=== PATIENT | male | born 1955 | race Caucasian/White ===

== ENCOUNTER 2023-10-03 09:03 | Observation (INO) ==
--- NOTE | 2023-08-25 10:54 | PAT Medication Instructions ---
Medication Instructions Date of Service August 25, 2023 Home Medications amoxicillin 500 mg-potassium clavulanate 125 mg tablet 1 tab PO BID ascorbic acid (vitamin C) 500 mg tablet (Vitamin C) 500 mg PO QAM cholecalciferol (vitamin D3) 100 mcg (4,000 unit) capsule 4,000 unit PO QAM clopidogrel 75 mg tablet 75 mg PO Q OTHER DAY coenzyme Q10 30 mg capsule 60 mg PO QAM dupilumab 300 mg/2 mL subcutaneous pen injector (Dupixent) 300 mg subcut UD fexofenadine 60 mg-pseudoephedrine ER 120 mg tablet,ext.release,12 hr ([place]-D 12 Hour) 1 tab PO Q OTHER DAY fluticasone 250 mcg-salmeterol 50 mcg/dose blistr powdr for inhalation 1 ea inhalation BID fluticasone propionate 50 mcg/actuation nasal spray,suspension 50 mcg intranasal BID PRN magnesium 200 mg tablet 400 mg PO QAM metoprolol succinate 25 mg tablet,extended release 24 hr 12.5 mg PO HS omega 9-ooq-eul-fish oil 1,200 mg (144 mg-216 mg) capsule (Fish Oil) 1 cap PO QAM rosuvastatin 10 mg tablet 10 mg PO HS tamsulosin 0.4 mg capsule 0.8 mg PO QPM triamcinolone acetonide 0.1 % topical cream 1 applic topical BID PRN ASK your prescriber and surgeon clopidogrel 75 mg tablet 75 mg PO Q OTHER DAY(in order for spinal or epidural anesthesia, Plavix needs to be stopped 7 days before surgery. Please check if okay with doctor that prescribes this to you) dupilumab 300 mg/2 mL subcutaneous pen injector (Dupixent) 300 mg subcut UD STOP taking 2 weeks before surgery (or as soon as possible if surgery is within 2 weeks) coenzyme Q10 30 mg capsule 60 mg PO QAM omega 4-rqi-gjs-fish oil 1,200 mg (144 mg-216 mg) capsule (Fish Oil) 1 cap PO QAM STOP taking 24 hours before surgery triamcinolone acetonide 0.1 % topical cream 1 applic topical BID PRN DO NOT take the morning of surgery ascorbic acid (vitamin C) 500 mg tablet (Vitamin C) 500 mg PO QAM cholecalciferol (vitamin D3) 100 mcg (4,000 unit) capsule 4,000 unit PO QAM fexofenadine 60 mg-pseudoephedrine ER 120 mg tablet,ext.release,12 hr ([place]-D 12 Hour) 1 tab PO Q OTHER DAY magnesium 200 mg tablet 400 mg PO QAM Take morning of surgery With a small sip of water, OTHERWISE NOTHING TO EAT OR DRINK AFTER MIDNIGHT: amoxicillin 500 mg-potassium clavulanate 125 mg tablet 1 tab PO BID fluticasone 250 mcg-salmeterol 50 mcg/dose blistr powdr for inhalation 1 ea inhalation BID fluticasone propionate 50 mcg/actuation nasal spray,suspension 50 mcg intranasal BID PRN(if needed) Take evening before surgery amoxicillin 500 mg-potassium clavulanate 125 mg tablet 1 tab PO BID fluticasone 250 mcg-salmeterol 50 mcg/dose blistr powdr for inhalation 1 ea inhalation BID fluticasone propionate 50 mcg/actuation nasal spray,suspension 50 mcg intranasal BID PRN(if needed) metoprolol succinate 25 mg tablet,extended release 24 hr 12.5 mg PO HS rosuvastatin 10 mg tablet 10 mg PO HS tamsulosin 0.4 mg capsule 0.8 mg PO QPM Other Notes If you have any questions please call us at [phone] or [phone] or [phone] or [phone]
--- NOTE | 2023-08-28 14:39 | Anesthesiology Consultation ---
Date of Service August 28, 2023 Assessment & Plan (1) Encounter for pre-operative examination: Pending: - will request most recent Dr. Joiner cardiology office note, stress test, carotid imaging if available. - will request most recent Dr. Calix [facility] pulmonology office note. - will request upcoming dermatology office visit early August 2023. Pt will call in with additional details on appt. - will request operative and anesthesia records from Dr. Hernandez regarding recent prostate biopsy and subsequent rash. - will request most recent Dr. Jaquez central allergy office note. - rash: patient and report development of "blotchy rash becoming fully red several days later" on arms and legs after prostate biopsy 08/21/[address] Hernandez. Rash fully resolved 08/25/23. Denies difficulty breathing, speaking, swallowing, swelling, pruritus or GI upset. He notes h/o "red, raised" rash after taking paxlovid last year with intermittent recurrence of that rash on his arms; patient states dermatology advised this may be a complication from COVID. He denies any current rash. Patient and his are concerned with what may have caused rash after prostate biopsy and avoidance of this if possible with upcoming surgery. He plans to remain in communication for more information from Dr. Hernandez's office and we will also attempt to obtain records. Patient states he discussed above with Dr. Mendiola as well. Case will be discussed with anesthesiologist pending attempts at above records. - given h/o allergic reactions and rashes, patient was provided with an additional set of chlorhexidine wipes to trial 3 weeks before surgery. He is aware to call office if develops any side effects with wipe use, denies any h/o reactions with chlorhexidine or other prep agents for surgeries. Chart Review Chart Review: Pending: Refer to Additional Notes / Consult section and Patient seen in Pre Admission Testing Teaching & Discussion Pre-Anesthesia Teaching/Discussion Notes: Instructed NPO after midnight before surgery, except medications with 15 cc of water. Medication instructions provided according to the PAT guidelines. History Surgery Operation Date: 10/03/23 08:50 Proposed Procedures p Right Total Knee Arthroplasty - Ming Mendiola MD Height/Weight Height: 5 ft 10 in Weight: 64.5 kg Allergies Allergy/AdvReac Type Severity Reaction Status Date / Time aspirin Allergy Intermediate Hives Verified 08/22/23 09:41 ibuprofen Allergy Intermediate Hives Verified 08/22/23 09:41 strawberry Allergy Intermediate Hives Verified 08/28/23 14:58 vancomycin Allergy Intermediate Redness of Verified 08/22/23 09:41 Skin nirmatrelvir [From Paxlovid] Allergy Mild Rash Verified 08/22/23 09:41 ritonavir [From Paxlovid] Allergy Mild Rash Verified 08/22/23 09:41 Medications Home Medications Medication Instructions Recorded Confirmed Last Taken amoxicillin 500 mg-potassium 1 tab PO BID 08/22/23 08/22/23 Unknown clavulanate 125 mg tablet ascorbic acid (vitamin C) 500 mg 500 mg PO QAM 08/22/23 08/22/23 Unknown tablet (Vitamin C) cholecalciferol (vitamin D3) 100 4,000 unit PO QAM 08/22/23 08/22/23 Unknown mcg (4,000 unit) capsule clopidogrel 75 mg tablet 75 mg PO Q OTHER DAY 08/22/23 08/22/23 Unknown coenzyme Q10 30 mg capsule 60 mg PO QAM 08/22/23 08/22/23 Unknown dupilumab 300 mg/2 mL subcutaneous 300 mg subcut UD 08/22/23 08/22/23 Unknown pen injector (Dupixent) fexofenadine 60 mg-pseudoephedrine 1 tab PO Q OTHER DAY 08/22/23 08/22/23 Unknown ER 120 mg tablet,ext.release,12 hr ([place]-D 12 Hour) fluticasone 250 mcg-salmeterol 50 1 ea inhalation BID 08/22/23 08/22/23 Unknown mcg/dose blistr powdr for inhalation fluticasone propionate 50 50 mcg intranasal BID PRN 08/22/23 08/22/23 Unknown mcg/actuation nasal Congestion spray,suspension magnesium 200 mg tablet 400 mg PO QAM 08/22/23 08/22/23 Unknown metoprolol succinate 25 mg 12.5 mg PO HS 08/22/23 08/22/23 Unknown tablet,extended release 24 hr omega 8-qbd-ury-fish oil 1,200 mg 1 cap PO QAM 08/22/23 08/22/23 Unknown (144 mg-216 mg) capsule (Fish Oil) rosuvastatin 10 mg tablet 10 mg PO HS 08/22/23 08/22/23 Unknown tamsulosin 0.4 mg capsule 0.8 mg PO QPM 08/22/23 08/22/23 Unknown triamcinolone acetonide 0.1 % 1 applic topical BID PRN Rash 08/22/23 08/22/23 Unknown topical cream Past Medical History Medical History (Updated 08/28/23 @ 16:11 by Rosario Hui PA-C) Bronchiectasis Augmentin bid, follows with [facility] pulmonology Dr. Calix, last pneumonia 2008 CAD (coronary artery disease) CABG x 3 2019 Cellulitis 2008, left thigh, IV antibiotics Eczema History of COVID-19 2022, denies hospitalized, resolved History of sleep apnea per pt and repeat testing after dupixent reportedly showed he did not need further testing for sleep apnea Patellofemoral disorders, left knee Phlebitis 2008 left thigh, IV antibiotics Rash hives on arms, recurrent since having COVID 03/2023 Vitiligo Patient denies h/o stroke, seizures, heart failure, DM, HTN, blood clots/DVTs or blood transfusions. Exercise / Class Metabolic Activity II 4-5 Yardwork/Stairs/Walk up hill (denies chest discomfort or shortness of breath with 1 FOS) Past Surgical History Surgical History History of bronchoscopy and mediastinoscopy History of colonoscopy Hx of arthroscopy of right knee x2 Hx of cardiac cath (~2019) no [place], 3 vessel blockage Hx of coronary artery bypass graft (~2019) Dr. Oliver reddy - [facility] Hx of nasal polypectomy x4 Hx of right knee surgery open Past Anesthesia History No Family Hx of Anesthesia Complications Ongoing evaluation re: recent rash after prostate biopsy, patient denies other anesthesia complications. History of PONV No Hx of PONV and No Hx of Motion Sickness Social History Smoking Status: Never smoker Do You Dip or Chew Tobacco: No Hx Alcohol Use: No Hx Substance Use: No substance use type: does not use Review of Systems Sinus drainage 2 weeks ago, resolved 7 days ago; denies fever, chills, cough, wheezing, rash at that time, pharyngitis, nausea or vomiting. Patient denies chest pain, shortness of breath, dyspnea on exertion, or reflux. Physical Exam Vital Signs Vitals BP 111/71 P 70 TEMP 97.9 SP02 99% on RA RESP 18 Physical Patient resting comfortably in chair in no acute distress, alert and oriented, responding appropriately throughout visit Full cervical extension range of motion without pain TMD 3. finger breadths Mallampati Score 2 Dentition: cap front upper, denies chipped or loose teeth, implants or bridges Lungs: normal respiratory effort. Good air movement, clear throughout to auscultation, no adventitious breath sounds Cardiac: regular rate and rhythm, no murmurs noted Carotid arteries: negative bruit bilat Lab Results Anesthesia Preop Results Results Anesthesia Widget: WBC 6.95 K/ul (4.8-10.8) 08/28/23 Hgb 13.8 g/dl (14.0-18.0) L 08/28/23 Hct 42.1 % (42.0-52.0) 08/28/23 Plt 319 K/uL (130-400) 08/28/23 Na 138 mmol/L (136-145) 08/28/23 K 4.3 mmol/L (3.5-5.1) 08/28/23 Cl 102 mmol/L (98-107) 08/28/23 CO2 32 mmol/L (21-32) 08/28/23 BUN 14 mg/dl (6-23) 08/28/23 Creat 0.79 mg/dl (0.6-1.4) 08/28/23 Glucose Level 86 mg/dl (70-99(Fasting)) 08/28/23 PT 11.2 Seconds (9.0-12.0) 08/28/23 PTT 30 Seconds (21-31) 08/28/23 INR 1.0 (0.9-1.1) 08/28/23 Blood Type O Positive 08/28/23 Antibody Screen NEGATIVE 08/28/23 Testing Electrocardiogram Date: 08/28/23 NSR, rate 69 bpm Chest X-Ray Date: 08/28/23 No acute cardiopulmonary findings. Mild interstitial thickening, likely chronic. Echocardiogram Date: 03/25/23 EF 60-65% Normal LV wall motion Grade I diastolic dysfunction RV mildly dilated Mild mitral regurgitation Mild tricuspid regurgitation Mildly dilated RA Aneurysmal atrial septum Cardiac Catheterization Date: 03/24/20 Left main: angiographically normal Cx: 95% stenosis, proximal 80% stenosis followed by luminal irregularities LAD: 80% stenosis, mid sequential 90% stenosis and mid LAD has focal 50-60% stenosis, mid to distal and distal LAD luminal irregularities RCA: 40-50% stenosis in the mid RCA Multivessel CAD, referred for CABG
--- NOTE | 2023-09-27 09:23 | History & Physical Report ---
Date of Service September 27, 2023 Assessment & Plan (1) Degenerative arthritis of knee, bilateral: 68-year-old gentleman with a long history of right knee arthritis has progressed over time. 2 previous surgeries including ACL reconstruction. He is failed conservative measures. He like to have his knee fixed. Plan: Will take him to the operating do right total knee replacement. The risks Mente this procedure explained to the patient clued but not limited to DVT PE infection neurological injury vascular bleeding palm pain limb range of motion sepsis fairly with symptoms incomplete relief of symptoms excetra. The patient understands and desires to proceed. He does have multiple allergies. Will likely have to give him clindamycin preoperatively. I was planning on using some antibiotics in the cement but will just probably go with the [place] cement as he is got a vancomycin allergy. Will plan on DVT prophylaxis including thigh-high teds, SCDs, and Plavix. He does get the Plavix 7 days preop. He is planned to be discharged to home using [facility] program. History of Present Illness Chief Complaint: . Right knee pain discomfort and instability. Primary Care Provider: NO PCP . 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 Got a long history of right knee problems. A he initially injured his knee back in 1980 skiing. He had a knee scope and 82 and then open knee surgery in including ACL reconstruction. It never got done great from this. Continues to have pain discomfort and instability in his knee. He has been through extensive conservative treatment primarily done at [facility] by Dr. Huggins. He is become mo re debilitated by his pain and discomfort. Limps more as the day goes on. His knee gives out intermittently. He is ready to have his knee fixed. Allergies Allergy/AdvReac Type Severity Reaction Status Date / Time aspirin Allergy Intermediate Hives Verified 08/22/23 09:41 cefazolin [From Ancef] Allergy Intermediate Rash Verified 09/18/23 15:36 ibuprofen Allergy Intermediate Hives Verified 08/22/23 09:41 strawberry Allergy Intermediate Hives Verified 08/28/23 14:58 vancomycin Allergy Intermediate Redness of Verified 08/22/23 09:41 Skin nirmatrelvir [From Paxlovid] Allergy Mild Rash Verified 08/22/23 09:41 ritonavir [From Paxlovid] Allergy Mild Rash Verified 08/22/23 09:41 Home Medications Medication Instructions Recorded Confirmed Type amoxicillin 500 mg-potassium 1 tab PO BID 08/22/23 08/22/23 History clavulanate 125 mg tablet ascorbic acid (vitamin C) 500 mg 500 mg PO QAM 08/22/23 08/22/23 History tablet (Vitamin C) cholecalciferol (vitamin D3) 100 4,000 unit PO QAM 08/22/23 08/22/23 History mcg (4,000 unit) capsule clopidogrel 75 mg tablet 75 mg PO Q OTHER DAY 08/22/23 08/22/23 History coenzyme Q10 30 mg capsule 60 mg PO QAM 08/22/23 08/22/23 History dupilumab 300 mg/2 mL subcutaneous 300 mg subcut UD 08/22/23 08/22/23 History pen injector (Dupixent) fexofenadine 60 mg-pseudoephedrine 1 tab PO Q OTHER DAY 08/22/23 08/22/23 History ER 120 mg tablet,ext.release,12 hr ([place]-D 12 Hour) fluticasone 250 mcg-salmeterol 50 1 ea inhalation BID 08/22/23 08/22/23 History mcg/dose blistr powdr for inhalation fluticasone propionate 50 50 mcg intranasal BID PRN 08/22/23 08/22/23 History mcg/actuation nasal Congestion spray,suspension magnesium 200 mg tablet 400 mg PO QAM 08/22/23 08/22/23 History metoprolol succinate 25 mg 12.5 mg PO HS 08/22/23 08/22/23 History tablet,extended release 24 hr omega 1-cpo-wyb-fish oil 1,200 mg 1 cap PO QAM 08/22/23 08/22/23 History (144 mg-216 mg) capsule (Fish Oil) rosuvastatin 10 mg tablet 10 mg PO HS 08/22/23 08/22/23 History tamsulosin 0.4 mg capsule 0.8 mg PO QPM 08/22/23 08/22/23 History triamcinolone acetonide 0.1 % 1 applic topical BID PRN Rash 08/22/23 08/22/23 History topical cream Past Med/Surg History Medical History History of sleep apnea per pt and repeat testing after dupixent reportedly showed he did not need further testing for sleep apnea Rash hives on arms, recurrent since having COVID 03/2023 Cellulitis 2008, left thigh, IV antibiotics Phlebitis 2009 left thigh, IV antibiotics CAD (coronary artery disease) CABG x 3 2019 Eczema Vitiligo History of COVID-19 2022, denies hospitalized, resolved Bronchiectasis Augmentin bid, follows with [facility] pulmonology Dr. Calix, last pneumonia 2009 Patellofemoral disorders, left knee Surgical History History of colonoscopy Hx of cardiac cath (~2019) no [place], 3 vessel blockage Hx of coronary artery bypass graft (~2019) Dr. Oliver reddy - [facility] History of bronchoscopy and mediastinoscopy Hx of right knee surgery open Hx of arthroscopy of right knee x2 Hx of nasal polypectomy x4 Social History Smoking Status: Never smoker Second Hand Exposure: No; Do You Dip or Chew Tobacco: No; Hx Alcohol Use: No Hx Substance Use: No Preferred Language: Danish Communication Ability: Effective Fish Salter Required: No Beliefs That Will Affect Care: None Current Living Situation: Spouse Feels Safe at Home: Yes Assistive Devices: Contacts and Glasses Review of Systems All systems reviewed & are unremarkable except as noted in HPI & below. Physical Exam . Physical examination reveals a pleasant middle-age male. Examination of the right knee reveals patient walks independently. He does limp on this right side. He is got multiple scars in the front of his knee. Got bony hypertrophy. He is got varus alignment to his knee. He has a varus thrust with weightbearing. Range of motion is about 10 degrees short full extension about 115 degrees of flexion. He has a positive Betty test. A little bit of a pivot glide. No varus or valgus instability. No pain with hip motion. Constitutional WD/WN, vitals as above Neck trachea midline, no thyromegaly Respiratory normal respiratory effort, lungs clear to auscultation Cardiovascular RRR, no murmur, no edema Gastrointestinal (Abdomen) normal bowel sounds, soft, nontender, no hepatosplenomegaly Results & Data Results & Data Laboratory Results . Diagnostic Findings . X-rays the right knee were reviewed. Shows advanced right knee tricompartment DJD. He is got complete loss of the joint space in all 3 compartments with tibiofemoral subluxation. There are interference screws in the proximal tibia and distal femur consistent with ACL reconstruction. PG Care Time/CCT Total # of Minutes Spent Total Time Spent with Patient: Total time spent is greater than 50% in coordination of care (as documented) at patient's floor/unit and/or counseling patient: Coding Level of Care Code None Diagnoses Degenerative arthritis of knee, bilateral M17.0
[~2023-10-03 09:03] MED LIST: BUPIVACAINE 0.5 % 5 MG/1 ML PF 10ML VIAL ONE; ROPIVACAINE 0.5% 5 MG/ML 30 ML VIAL ONE; [UNRECOGNIZED DRUG - REMARK] SCH
--- NOTE | 2023-10-03 09:09 | History & Physical Bridge Note ---
Date of Service October 03, 2023 History & Physical Bridge Note I have examined the patient, reviewed the History & Physical and in the interval since the performance of the History & Physical I have noted the following changes of clinical significance: no changes noted
[2023-10-03] MEDS: ACETAMINOPHEN 500 MG TAB PO SCH ×2 (09:59→16:22)
[2023-10-03] MEDS: METOCLOPRAMIDE HCL 10 MG TABLET PO SCH (09:59)
[2023-10-03] MEDS: FAMOTIDINE 20 MG TAB PO SCH (09:59)
[2023-10-03] MEDS: LR 500ML BOLUS, THEN 15ML/HR IV SCH (09:59)
[2023-10-03] MEDS: Scopolamine 1 MG TDSY TD SCH (10:00)
[2023-10-03] MEDS: dexAMETHasone**PF** 10 MG/ML VIAL IV SCH (10:00)
[2023-10-03] MEDS: LR 60ML/HR IV SCH (10:00)
[2023-10-03] MEDS ORDERED: MIDAZOLAM HCL 1 MG/ML 2ML VIAL ONE (10:04)
[2023-10-03] MEDS ORDERED: PROPOFOL IV EMULSION 10 MG/ML 20 ML VIAL IV ONE ×3 (10:26)
[2023-10-03] MEDS ORDERED: ONDANSETRON INJ 2 MG/ML 2 ML VIAL ONE ×2 (10:30→13:13)
[2023-10-03] MEDS ORDERED: ATROPINE SULFATE 0.1 MG/ML 10ML SYR IV PRN (10:46)
[2023-10-03] MEDS ORDERED: ePHEDrine sulfate 50 MG/ML AMP IV PRN (10:46)
[2023-10-03] MEDS ORDERED: HYDROmorphone INJ 2 MG/ML SYR/VIAL IV PRN (10:46)
[2023-10-03] MEDS ORDERED: PROMETHAZINE HCL 6.25 MG in SODIUM CHLORIDE 0.9% 50 ML IV PRN (10:46)
[2023-10-03] MEDS: TOBRAMYCIN SULFATE VIAL ONE (12:52)
[2023-10-03] MEDS: ROPIVACAINE 0.5% HCL/PF 246 MG, EPINEPHrine 30MG/30ML (OR USE) 0.5 MG in SODIUM CHLORID... INFIL ONE (12:53)
--- NOTE | 2023-10-03 13:43 | Operative Report ---
PG Post Operative Report Pre & Post Diagnosis Operation Date: 10/03/23 10:40 Pre-Op Diagnosis: Degenerative Joint Disease Knee Right Post-Op Diagnosis: Degenrative Joint Disease Knee Right I identified the patient and participated in the time-out.: Yes Procedure Operation Date: 10/03/23 10:40 Actual Procedures p Right Total Knee Arthroplasty, Hardware Removal (Right) Knee - Ming Mendiola MD Surgeon Ming Mendiola MD Cost Consultant Paul Batres PA-C Estimated Blood Loss 50 Findings Consistent with Post-Op Diagnosis Operative findings revealed advanced right knee tricompartment DJD. He had extensive grade 4 [id number] disease in all 3 compartments. He had a large knee joint effusion. Osteophytes in all 3 compartments. Chronic ACL deficiency. Specimens Right knee sent for pathology. Anesthesia Type Spinal MAC Complications none Disposition Accompanied Patient To Recovery: No Indications Patient is a 68-year-old fairly active gentleman with a long history of knee problems. He has had multiple surgeries on his knee many years ago including ACL reconstruction. Over the years he developed progressive pain discomfort and stiffness in his knee. He failed all conservative measures. He elected to a total knee arthroplasty. He did have some hardware in place which had to be removed in order to do the knee replacement. He also had multiple chronic cystic changes in the distal medial femoral condyle as well as in the proximal tibia. Description of Procedure Operative implants consist of: 1 Biomet Vanguard size 70 right posterior stabilized femoral component. 2. Biomet size 75 tibial tray. 3. 10 mm post stabilized polyethylene insert. 4. 34 x 8 and half all poly patella. The patient was taken the operating, identified, placed on the operating table in the supine position but all contact areas were appropriately padded. IV antibiotics tried by anesthesia team. Spinal anesthetic in the holding area along with an adductor canal block. Right Tetrick was then placed. The right lower extremities then prepped and draped in usual sterile fashion. The right leg was elevated and exsanguinated with use of an Esmarch and tourn iquet placed at 300 mmHg. An anterior approach to the right knee was then performed to longitudinal incision centered over the patella. We used the previous incision which was used for ACL reconstruction. We extended this distally and proximally. Sharp dissection scalp through subcutaneous tissue down the extensor mechanism. A medial parapatellar arthrotomy incision was made. Some subperiosteal dissection was carried out medially. The fat pad was resected from Neath patella tendon. Lateral patellofemoral ligament was released. Patella subluxated laterally and the knee was flexed. The osteophytes taken off the distal femur. The ACL was absent. The PCL was released from the distal femur and the tibia subluxated anteriorly. The external tibial alignment jig was then placed in the interface the tibia and adjusted 14 mm medially. Proximal tibial cut was made remove about a millimeter bone at most from the most deficient aspect the posterior medial tibial plateau. The tibia was sized to a size 5. I did spend some time curetting all the cyst in the proximal tibia and this particularly was a fairly large 1 posterior medial. Attention drawn the femur. The distal femur examined the sharp drop with intramedullary canal was suction. Right 6 degree valgus cutting guide was placed. This femoral cutting block was pinned in place. Distal femoral cut was made to take an additional 3 mm of distal femur. The femur was then sized to a size 70. The AP cutting block was pinned parallel to the epicondylar axis which was 4 degrees of external rotation. The anterior cut, anterior chamfer, posterior cut, posterior chamfer cuts were made. The box cutting guide was placed in just slight lateral and the box cut was made. The knee was flexed. The remnants of the medial and lateral menisci were excised. The osteophytes taken off the posterior aspect the femur. I did curette a large cyst off the medial femoral condyle to allow for cement interdigitation. A trial femoral component was placed. The tibial tray was pinned Danielle external rotation and the drill and stem punch were used to create defect in the proximal tibia for the tibial tray. Knee was then trialed and the 10 mm insert fit most appropriately. Attention drawn the patella. The patella was cleaned of all soft tissue. Patella thickness measured 25 mm in thickness and cut this down to 15. I did not want to send it out too much as he had a previous bone harvested from this patella. The lug holes were drilled for the 34 patella. The lateral osteophyte was removed. Patella button was placed. Knee was taken through range of motion patella tracked nicely with no thumbs test. Attention drawn to placing the permanent components. Nupathe all trial components were removed. Bone plug was placed into this femur limit blood loss. Double batch Palacos G cement was mixed. I did add an additional 1.2 g of tobramycin due to his history of multiple respiratory tract infections as well as previous open surgery in this knee. A Biomet Vanguard size 70 right Po stabilized femoral component, size 75 tibial tray, a 10 mm post stabilized polyethylene insert, and a 34 x 8 and half all poly patella then cemented in place. He was brought out in full extension till cement hardened. Final cement check was then performed. The pericapsular tissues were injected with total of 100 cc of Ortho a joint mix without the Toradol. We excluded Toradol due to his allergy history. Patient did receive 1 g tranexamic acid. The tourniquet was then let down for final tourniquet time of 62 minutes. Hemostasis assured use electrocautery. Extensor Meclomen closed with combination 1 PDS suture #1 Vicryl suture in a [id number] fashion. Extensor Meclomen checked found to be intact the subcutaneous tissue then closed with 2 Dexon suture in a buried interrupted fashion skin was closed skin dayami. Leg was then cleaned and dried and sterile dressing with Xeroform, 4 fours, sterile cast padding, Murphy bandage were applied. Patient then transferred to the recovery room in stable condition. Patient tolerated procedure well and there were no complications. Paul Batres PA-C, my physician butcher assistant, was present for the entire procedure. His assistance was required for proper patient positioning, prepping and draping, surgical exposure, retraction, perform the technical details of the operation, closure of the incision and placement of the sterile bandage. I attest to the content of the Intraoperative Record and any orders documented therein. Any exceptions are noted below.
--- NOTE | 2023-10-03 14:10 | XRay Report ---
TWO VIEWS RIGHT KNEE CLINICAL HISTORY: Postoperative examination. FINDINGS: AP and crosstable lateral portable views of the right knee are obtained. A right knee arthr oplasty is in near anatomic alignment. There has been undersurface remodeling of the patella. No acut e fracture is seen. There are expected postoperative changes around the knee including skin clips, s oft tissue edema, and subcutaneous gas. IMPRESSION: Expected postoperative changes status post right knee arthroplasty. No acute fracture is seen. ACT 112: Negative or not required by law. Electronically signed by: Miko Quintero M.D. 10/03/2023 2:09 PM
--- NOTE | 2023-10-03 14:59 | Anesthesiology Progress Note ---
Date of Service October 03, 2023 Anesthesia Post Procedure Vital Signs Vital Signs: Temp Pulse Resp BP BP Pulse Ox O2 Del Method 10/03/23 14:40 71 15 119/67 96 Room Air 10/03/23 14:25 36.4 C L 62 15 109/61 98 Room Air 10/03/23 14:15 71 14 111/82 97 Room Air 10/03/23 14:05 70 13 115/66 100 Room Air 10/03/23 13:55 67 15 108/63 100 Oxymask 10/03/23 13:45 72 16 110/64 100 Oxymask 10/03/23 13:36 36.0 C L 81 16 117/65 99 Oxymask 10/03/23 09:43 36.5 C 72 18 130/72 100 Room Air O2 Flow Rate 10/03/23 14:40 10/03/23 14:25 10/03/23 14:15 10/03/23 14:05 10/03/23 13:55 5 10/03/23 13:45 5 10/03/23 13:36 5 10/03/23 09:43 Transfer of Care Handoff Completed per policy Notes Mental Status: alert / awake / arousable and participated in evaluation Nausea / Vomiting: adequately controlled Pain: adequately controlled Airway Patency, RR, SpO2: stable & adequate BP & HR: stable & adequate Hydration State: stable & adequate Neuraxial Anesthesia: was administered and sensory block is resolving Anesthetic Complications: no major complications apparent and Pt Satisfied with anesthetic care
[2023-10-03] MEDS ORDERED: METOCLOPRAMIDE HCL INJ 5 MG/ML 2 ML VIAL IV PRN (15:40)
[2023-10-03] MEDS ORDERED: bisacodyL 10 MG SUPP PR PRN (15:40)
[2023-10-03] MEDS ORDERED: DUPILUMAB 300 MG/2 ML SQ SCH (15:40)
[2023-10-03] MEDS ORDERED: MAGNESIUM HYDROXIDE SUSP 30 ML UDC PO PRN (15:40)
[2023-10-03] MEDS ORDERED: HYDROmorphone INJ 0.5 MG/0.5 ML SYR IV PRN (15:40)
[2023-10-03] MEDS ORDERED: FLUTICASONE PROPIONATE NA SPR 16 GM BTL NAE PRN (15:40)
[2023-10-03] MEDS ORDERED: NO NSAIDS SCH (15:40)
[2023-10-03] MEDS ORDERED: ALUMINUM/MAGNESIUM SUSP 30 ML UDC PO PRN (15:40)
[2023-10-03] MEDS ORDERED: NALOXONE HCL 0.4 MG/1 ML VIAL/CARP IV PRN (15:40)
[2023-10-03] MEDS ORDERED: TRIAMCINOLONE ACET 0.1% CR 15 GM TUBE TOP PRN (15:40)
[2023-10-03] MEDS ORDERED: ONDANSETRON INJ 2 MG/ML 2 ML VIAL IV PRN (15:40)
[2023-10-03] MEDS: CLINDAMYCIN/D5W 900 MG/50 ML BAG IV SCH (16:01)
[2023-10-03] MEDS: CLINDAMYCIN 900 MG/D5W 50 ML BAG IV ONE (16:02)
[2023-10-03] MEDS: TRANEXAMIC ACID 1,000 MG **IV Intra-op IV SCH (16:02)
[2023-10-03] MEDS: SODIUM CHLORIDE 0.9% 1,000 ML IV SCH (16:22)
[2023-10-03] MEDS: Scopolamine CHECK PATCH PLACEMENT SCH (16:23)
[2023-10-03] MEDS: TRANEXAMIC ACID / 0.7% NACL 1,000 MG/100 ML BAG IV SCH (20:11)
[2023-10-03] MEDS: CLINDAMYCIN/D5W 600 MG/50 ML BAG IV SCH (20:32)
[2023-10-03] MEDS: DOCUSATE SODIUM 100 MG CAP PO SCH (20:35)
[2023-10-03] MEDS: TAMSULOSIN HCL 0.4 MG CAP PO SCH (20:36)
[2023-10-03] MEDS: METOPROLOL SUCC 25MG EXT REL TAB PO SCH (20:36)
[2023-10-03] MEDS: SENNA 8.6 MG TAB PO SCH (20:37)
[2023-10-03] MEDS: ROSUVASTATIN CALCIUM 10 MG TAB PO SCH (20:37)
[2023-10-03] MEDS ORDERED: SENNA 8.6 MG TAB PO SCH (21:00)
[2023-10-03] MEDS ORDERED: AMOXICILLIN/CLAVULANATE 500 MG TAB PO SCH (21:00)
[2023-10-03] MEDS: oxyCODONE HCL IR 5 MG TAB (IMMEDIATE RELEASE) PO PRN (23:27)
[2023-10-04 06:47] LABS: Hematocrit (blood only) 35.2 % (42.0-52.0); Hemoglobin 12.1 g/dl (14.0-18.0); Mean Corpuscular Hemoglobin 31.3 pg (25.0-34.0); Mean Corpuscular Hgb Conc 34.4 g/dL (32.0-36.0); Mean Platelet Volume 9.3 fL (9.4-12.4); Platelet Count 306 K/uL (130-400); RDW Coefficient of Variation 12.3 % (11.5-14.5); RDW Standard Deviation 40.6 fL (36.4-46.3); Red Blood Count 3.87 M/uL (4.70-6.10); White Blood Count 12.01 K/ul (4.8-10.8)
[2023-10-04 07:13] LABS: BUN Creatinine Ratio 20.9 (10-20); Calcium 8.6 mg/dl (8.6-10.3); Creatinine Clr Calc Pharmacy 73.3 ml/min; Est GFR (African American) 102.5 ml/min; Est GFR (Non-African American) 88.5 ml/min; Potassium 4.2 mmol/L (3.5-5.1)
[2023-10-04] MEDS: dexAMETHasone 10 MG in SYRINGE 0 ML IV SCH (07:21)
[2023-10-04] MEDS: ASCORBIC ACID 500 MG TAB PO SCH (07:22)
[2023-10-04] MEDS: CLOPIDOGREL BISULFATE 75 MG TAB PO SCH (07:23)
[2023-10-04] MEDS: CHOLECALCIFEROL 25 MCG (1000 UNITS) TAB PO SCH (07:23)
[2023-10-04] MEDS: OMEGA-3 (PURIFIED FISH OIL) 1 GM CAP PO SCH (07:24)
[2023-10-04] MEDS: MULTIVITAMIN TAB PO SCH (07:25)
[2023-10-04] MEDS: FLUTICASONE/VILANTEROL 100/25MCG 14 PUFFS/INHALER INH SCH (07:25)
[2023-10-04] MEDS: MAGNESIUM OXIDE 400 MG TAB PO SCH (07:25)
--- NOTE | 2023-10-04 07:58 | Surgery Progress Note ---
Date of Service October 04, 2023 Assessment & Plan (1) Status post right knee replacement: Plan: 68-year-old gentleman postop day 1 from a right knee replacement hardware removal. He is doing pretty well. Ankle pain is a little hard to explain but seems to be improved. He is neurologically intact. Pains controlled otherwise. Plan: 1. DVT prophylaxis including thigh-high teds, SCDs, and back on his Plavix starting today. 2. PT/OT. Weight-bear as tolerated. Right total knee protocol. 3. Pain control doing okay with current pain regimen. 4. Disposition plan to discharge to home with some home health. Will see how therapy goes today. Admission and Anticipated Discharge Date Admission Date: October 03, 2023 Subjective 68-year-old gentleman postop day 1 from a right knee replacement hardware removal. He is doing pretty well this morning. He was having some ankle pain last night took some pain medicine and doing better. His knee pains have very manageable. No chest pain or shortness of breath. Not feeling dizzy or lightheaded. Physical Exam Physical Exam: Physical exam shows a pleasant elderly male. He is lying bed this morning looks pretty comfortable. Examination of the right leg reveals leg to be well aligned. Dressings clean dry and intact he can dorsiflex and plantarflex his foot appropriately. He is neurologically intact. Respiratory: normal respiratory effort, lungs clear to auscultation Cardiovascular: RRR, no murmur, no edema Gastrointestinal (Abdomen): normal bowel sounds, soft, nontender, no hepatosplenomegaly Results & Data Vital Signs (Past 12 Hours) Vital Signs Temp Pulse Resp BP BP Pulse Ox O2 Del Method 10/04/23 07:35 36.4 C L 58 L 18 114/66 98 Room Air 10/04/23 03:30 36.5 C 60 16 100/54 L 96 Room Air 10/03/23 22:10 36.6 C 73 16 115/61 94 Room Air 10/03/23 21:25 36.6 C 63 16 108/53 L 97 Room Air Laboratory Results Hemoglobin is 12.1. Hematocrit 35.2. Electrolytes are stable. PG Care Time/CCT Total # of Minutes Spent Total Time Spent with Patient: Total time spent is greater than 50% in coordination of care (as documented) at patient's floor/unit and/or counseling patient: Coding Level of Care Code 38670 Post Operative Follow-Up Diagnoses Status post right knee replacement Z96.651
[2023-10-04] MEDS ORDERED: FEXOFENADINE 60 MG TAB PO SCH (09:00)
[2023-10-04] MEDS ORDERED: NON-FORMULARY MEDICATION (Coenzyme Q10 30 mg Capsule) PO SCH (09:00)
--- NOTE | 2023-10-05 08:27 | Surgery Progress Note ---
Date of Service October 05, 2023 Assessment & Plan (1) Status post right knee replacement: Plan: 68-year-old gentleman postop day 2 from a right knee replacement hardware removal. He is doing better this morning. Pains improved. Hoping to go home today. Plan: 1. DVT prophylaxis including thigh-high teds, SCDs, back on his Plavix. 2. PT/OT. Weight-bear as tolerated right total knee protocol. 3. Pain control doing well with current pain regimen. 4 disposition plan to discharge to home with some home health if he does okay in therapy today. Admission and Anticipated Discharge Date Admission Date: October 03, 2023 Subjective 68-year-old gentleman postop day 2 from a right knee replacement hardware removal. He is doing better this morning. The ankle and leg pains improved. No chest pain or shortness of breath. He is hoping to go home today. Physical Exam Physical Exam: Physical examination is a pleasant middle-age male. Sitting on bed and eating breakfast. He looks pretty comfortable. Examination of the right leg reveals dressing clean dry and intact. He can dorsiflex and plantarflex his foot appropriately. He is neurologically intact. Results & Data Vital Signs (Past 12 Hours) Vital Signs Temp Pulse Resp BP Pulse Ox O2 Del Method 10/05/23 07:05 36.6 C 67 18 92/47 L 97 Room Air PG Care Time/CCT Total # of Minutes Spent Total Time Spent with Patient: Total time spent is greater than 50% in coordination of care (as documented) at patient's floor/unit and/or counseling patient: Coding Level of Care Code 22755 Post Operative Follow-Up Diagnoses Status post right knee replacement Z96.651
--- NOTE | 2023-10-06 12:44 | Discharge Summary ---
Date of Service October 05, 2023 Admission HPI (Per Admitting) . 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 Got a long history of right knee problems. A he initially injured his knee back in 1980 skiing. He had a knee scope and and then open knee surgery in including ACL reconstruction. It never got done great from this. Continues to have pain discomfort and instability in his knee. He has been through extensive conservative treatment primarily done at [facility] by Dr. Huggins. He is become more debilitated by his pain and discomfort. Limps more as the day goes on. His knee gives out intermittently. He is ready to have his knee fixed. Admission Exam (Per Admitting) . Physical examination reveals a pleasant middle-age male. Examination of the r ight knee reveals patient walks independently. He does limp on this right side. He is got multiple scars in the front of his knee. Got bony hypertrophy. He is got varus alignment to his knee. He has a varus thrust with weightbearing. Range of motion is about 10 degrees short full extension about 115 degrees of flexion. He has a positive Betty test. A little bit of a pivot glide. No varus or valgus instability. No pain with hip motion. Principal Diagnosis Same as "Discharge Diagnosis" noted below under Discharge Instructions. Discharge Exam Physical Exam: Physical exam shows a pleasant elderly male. He is lying bed this morning looks pretty comfortable. Examination of the right leg reveals leg to be well aligned. Dressings clean dry and intact he can dorsiflex and plantarflex his foot appropriately. He is neurologically intact. Respiratory: normal respiratory effort, lungs clear to auscultation Cardiovascular: RRR, no murmur, no edema Gastrointestinal (Abdomen): normal bowel sounds, soft, nontender, no hepatosplenomegaly Discharge Data Procedures Performed Operation Date: 10/03/23 10:40 Actual Procedures p Right Total Knee Arthroplasty, Hardware Removal (Right) - Ming Mendiola MD Ordered Studies 10/03/23 05:00 US - OR guided needle placemen Routine Hospital Course (1) Status post right knee replacement: On October 03, 2023 Alex arrived at [facility] and underwent a right total knee arthroplasty performed by Dr. Mendiola with no complications. He had a spinal anesthetic. Postoperatively, he was transferred to the PACU for immediate postoperative management and then transferred to the general orthopedic floor in stable condition. On postoperative day #1, his vital signs were stable. He was restarted back onto his Plavix for DVT prophylaxis. He was limited this day working with physical therapy due to right ankle pain. He did not feel comfortable being discharged home. It was recommended that he stays one more night to participate with physical therapy in the morning the next day as well as for pain control. No significant events occurred the rest of the day. On postoperative day #2, his vital signs were stable and his pain was well-controlled. He participated well with physical therapy working on ambulation and range of motion exercises. His right ankle pain significantly improved. He was then discharged home in stable condition. He will follow-up in [address] Mendiola for postoperative management. PG Care Time/CCT Total # of Minutes Spent Total Time Spent with Patient: Total time spent is greater than 50% in coordination of care (as documented) at patient's floor/unit and/or counseling patient: Discharge Plan Discharge Items Patient Disposition: Home - Home Health Services Reason For Visit: DJD Knee Right Discharge Diagnosis: Right Knee Replacement Activity: Per Instructions section Weightbearing: Full weightbearing Non-emergency contact: Surgeon Call non-emergency contact if: you have any medication questions Follow-up/Referrals: Lisbeth Mayer PA-C [Primary Care Provider] - Diet: Regular Addtl Attending Provider Instructions: ACTIVITY RECOMMENDATIONS: Physical Therapy: * You will go to physical therapy three times each week for four to six weeks after your surgery in order to regain your knee range of motion and to retrain your knee to work properly. * It is just as important to make sure you are getting your knee perfectly straight as it is to regain your knee bend. * Taking a pain pill an hour before therapy can help you have a more productive and comfortable therapy session. Home Exercise: * You were shown a series of exercises (heel props, heel slides, etc.) in the hospital. Do these exercises three to four times each day including the exercises you were shown in physical therapy. Walking: * Get up and walk several times each day. For the first four weeks, try not to stand or walk for more than one hour at a time. If you do stand or walk for more than one hour, you will not hurt anything, but your knee and leg will likely swell. * As you feel comfortable, you may change from the walker or crutches to a cane and then to independent walking. MEDICATIONS: New Medicine: * You will likely be taking one or more of these medications: 1. Oxycodone - A quick and shorter-acting pain medication. Take one to two tablets every six hours to lessen your pain. 2. Plavix - Thins your blood to lessen the chance of forming a blood clot. * The most common side effects of pain medicine and iron are nausea and constipation. If nausea or constipation is too much of a problem or if you have any questions about your new medicines or doses, call [facility] at . We will try to help you manage these issues. "VERY IMPORTANT TO READ AND REVIEW" Pain: * The immediate post-operative period after knee replacement surgery is often quite painful. * You are given a prescription for pain medicine. You should take it, as directed, when you need it, especially before physical therapy and before going to bed. Pain that interferes with sleep is very common and can last several months. * You will likely need pain medicine for the first four to six weeks. It will not stop all of the pain. The pain will lessen and as you feel better, you may change to milder pain medicine such as Tylenol. * The most common side effects of pain medicine are nausea and constipation, so don't take more than you need. SPECIAL CARE INSTRUCTIONS: TEDs/Elastic Stockings: * The white elastic stockings help limit swelling and prevent blood clots from forming in your legs. The more you wear them, the more they work. * Wear them for six weeks after knee replacement surgery and four weeks after partial knee replacement. Incision Site Care: * Remove dressing postoperative day 2 and then shower. Keep direct shower pressure off the incision site. * After showering, cover dayami with dry gauze and change daily or more frequently if the dressing is getting saturated with drainage. * Use the DADA stockings to hold dressing in place. DO NOT apply tape on the skin. * May completely stop using bandage if wound is dry and no drainage * Dayami are removed between 2 and 3 weeks post-op. If your follow-up appointment is made before 2 weeks, please have your appointment re- scheduled. It is too early to remove the dayami. Prevention of Infection: * Take antibiotics one hour before any dental cleaning, dental work, urological procedure, gastrointestinal procedure or any invasive surgery in order to prevent your new joint from getting infected. * You may get the antibiotics from the doctor performing the procedure or you may call our office at [phone] before and we will call in a prescription to the pharmacy of your choice. Things to Watch For: * Drainage from the incision site that occurs more than one week after your s urgery. * Severely increased knee/leg pain or swelling. * Increased redness at the incision site. * Fever above 102 degrees Fahrenheit. * Unusual chest pain or shortness of breath. * Unusual pain or burning with urination. Call [facility] at [phone] with any of the above problems or if you have any questions about your medicines or recovery. FOLLOW UP VISIT: Make an appointment to see your doctor for approximately two weeks after surgery for a progress check and staple removal by calling the office at [phone]. Pending Studies at Discharge: No Stand-Alone Forms: [facility] [place], Smoking Cessation Medications and DC Order Prescriptions: Continued oxycodone 5 mg tablet 5 - 10 mg PO Q6 PRN (Reason: pain) Qty: 40 0RF Rx Instructions: Take as needed for pain ondansetron 4 mg tablet,disintegrating 4 mg PO Q8 PRN (Reason: nausea) Qty: 20 1RF Rx Instructions: Take as needed for nausea sennosides [Senokot] 8.6 mg tablet 8.6 mg PO BID 14 Days Qty: 28 0RF Rx Instructions: Take two times a day to prevent/treat constipation acetaminophen [Tylenol Extra Strength] 500 mg tablet 1,000 mg PO TID 30 Days Qty: 180 0RF Rx Instructions: Take 3 times per day to lessen pain. clindamycin HCl 300 mg capsule 300 mg PO TID PRN (Reason: prevent infection) Qty: 21 0RF fluticasone propion-salmeterol 250-50 mcg/dose blister with device 1 ea INHALATION BID clopidogrel 75 mg tablet 75 mg PO Q OTHER DAY triamcinolone acetonide 0.1 % cream 1 applic TOPICAL BID PRN (Reason: Rash) ascorbic acid (vitamin C) [Vitamin C] 500 mg Tablet 500 mg PO QAM tamsulosin 0.4 mg capsule 0.8 mg PO QPM metoprolol succinate 25 mg tablet extended release 24 hr 12.5 mg PO HS fexofenadine-pseudoephedrine [[place]-D 12 Hour] 60-120 mg Tablet Extended Release 12 Hr 1 tab PO Q OTHER DAY fluticasone propionate 50 mcg/actuation spray,suspension 50 mcg INTRANASAL BID PRN (Reason: Congestion) coenzyme Q10 30 mg Capsule 60 mg PO QAM amoxicillin-pot clavulanate 500-125 mg tablet 1 tab PO BID Rx Instructions: 2x day for 5 days then 9 days off magnesium 200 mg Tablet 400 mg PO QAM rosuvastatin 10 mg tablet 10 mg PO HS omega 1-bcx-mqd-fish oil [Fish Oil] 1,200 (144-216) mg Capsule 1 cap PO QAM cholecalciferol (vitamin D3) 100 mcg (4,000 unit) Capsule 4,000 unit PO QAM Dupixent Pen 300 mg/2 mL Pen Injector 300 mg SUBCUT UD Rx Instructions: Every other week, Friday Admission Data Admit Date/Time: 10/03/23 13:40 Attending Provider: Ming Mendiola Admit Provider: Ming Mendiola Primary Care Provider: Lisbeth Mayer Other Providers: [facility] Other Interventions: Discharge Summary Assessment (RN) Last Done: 10/05/23 11:02
== END 2023-10-05 11:55 | disposition home health service (06) ==
LOC: 3N 09:03 → ASU 09:03